=== PATIENT | male | born 1960 | race Caucasian/White ===

== ENCOUNTER 2021-10-18 14:41 | Inpatient (IN) | payer MEDICARE, MEDICAID, SELFPAY ==
[2021-10-18] VITALS (9 sets, daily range): BP systolic 125–140; BP diastolic 90–94; PULSE 65–74; RESP 16–18; TEMP 36.4–37.2; O2SAT 93–99; BMI 29.2; BMI 28.8
--- NOTE | 2021-10-18 15:02 | EKG12_ITS ---
Test Reason : CP Blood Pressure : / mmHG Vent. Rate : 077 BPM Atrial Rate : 077 BPM P-R Int : 124 ms QRS Dur : 156 ms QT Int : 506 ms P-R-T Axes : 046 256 111 degrees QTc Int : 572 ms AV dual-paced rhythm with frequent Premature ventricular complexes Biventricular pacemaker detected Abnormal ECG Confirmed by ANASTACIO VALIENTE, DOMINIQUE ([id number]), market editor ERICK MUÑIZ ([id number]) on 10/20/2021 1:01:04 PM Referred By: MARIO ALBERTO Confirmed By:MAGDALENO CHAEVS MD
--- NOTE | 2021-10-18 15:04 | EX.ED.DYSGE1 ---
HPI History of Present Illness Chief Complaint: ETOH Intox Informant: patient Narrative Narrative: Patient presents requesting detox from alcohol. He reports drinking beer for the last 30 years or so. He typically would drink 6 or 724 ounce cans daily. He states his last drink was 2 days ago. He is never been through a formal detox program. He has gone through withdrawals at home in the past. He denies any history of seizure. He also complains of chest pain that started approximate hour prior to arrival. He has a history of 2 prior MIs and has 11 cardiac stents. He does have a defibrillator and states this is his third defibrillator. His heart doctor is in [place]. He states he was seen in the ER at [facility] yesterday secondary to chest pain. He was discharged around midnight with a negative work-up. Pain recurred about an hour ago. Patient states his last heart cath was in July of this year that showed only mild narrowing. [facility] Medical History CAD (coronary artery disease) Myocardial infarction Pacemaker Allergy/AdvReac Type Severity Reaction Status Date / Time azithromycin Allergy Hives Verified 10/18/21 14:45 codeine Allergy Hives Verified 10/18/21 14:45 Surgical History History of heart artery stent Social History (Updated 10/18/21 @ 15:[address] Kristy Castro MD) Smoking Status: Unknown if ever smoked alcohol intake: current alcohol intake frequency: 3 or more drinks per day Alcohol type: beer ROS ROS ED Constitutional Constitutional ED: Denies chills or fever(s) Eyes Eyes: Denies change in vision ENT ENT ED: Denies sore throat Cardiovascular Cardiovascular: Reports chest pain Respiratory/Chest Respiratory/Chest: Denies cough or dyspnea Gastrointestinal Gastrointestinal: Denies abdominal pain, nausea or vomiting Genitourinary Genitourinary ED: Denies dysuria Musculoskeletal Musculoskeletal: Denies back pain or neck pain Integumentary Denies rash Neurologic Neurologic: Denies headache(s) or weakness Allergic/Immunologic Allergic/Immunologic ED: Denies urticaria EXAM Physical Exam Const Vital Signs: 10/18/21 14:42 Temperature 97.9 F Temperature Source Temporal Pulse Rate 74 Respiratory Rate 18 Blood Pressure 140/94 H Blood Pressure Mean 109 Pulse Ox 99 Positive well nourished and well developed General Appearance ED: well developed HEENT Reports moist mucous membranes Eyes PERRL and EOMs intact bilaterally Neck supple Chest Wall inspection of chest normal and palpation of chest normal Resp normal respiratory effort and clear to auscultation bilaterally Cardio regular rate and regular rhythm GI normal to inspection, nondistended, normoactive bowel sounds and non-tender Palpation: soft Extremity normal to inspection Neuro oriented x3 Neuro Narrative: Tremor noted to the bilateral upper extremities Sensorium / Orientation: alert Psych Mood & Affect: anxious Skin no rashes or lesions noted MDM MDM MDM Narrative Medical decision making narrative: Patient placed on secured entrance monitor. EKG, chest x-ray, lab work obtained. Patient given 1 mg of IV Ativan. Lab Data Attestation: I reviewed the patient's lab results. Labs: Laboratory Results - last 24 hr 10/18/21 10/18/21 10/18/21 15:15 15:15 15:15 WBC 6.7 RBC 5.71 Hgb 18.2 H* Hct 51.2 MCV 89.7 MCH 31.9 MCHC 35.5 RDW Std Deviation 39.6 RDW Coeff of [place] 11.9 Plt Count 164 MPV 9.5 Immature Gran % (Auto) 0.300 Neut % (Auto) 51.9 Lymph % (Auto) 37.8 [place] % (Auto) 8.9 Eos % (Auto) 0.7 Baso % (Auto) 0.4 Absolute Neuts (auto) 3.5 Absolute Lymphs (auto) 2.55 Nucleated RBC % 0 Diff Path Review November foll Sodium 137 Potassium 3.7 Chloride 108 H Carbon Dioxide 21.0 Anion Gap 8 BUN 11 Creatinine 0.87 Estim Creat Clear Calc 91.42 Est GFR (MDRD) Af Amer 115 Est GFR (MDRD) Non-Af 95 BUN/Creatinine Ratio 12.6 Glucose 92 Calcium 9.5 Total Bilirubin 1.40 H AST 55 H ALT 81 H Alkaline Phosphatase 86 Troponin I High Sens 29 Total Protein 7.9 Albumin 4.0 Globulin 3.9 Albumin/Globulin Ratio 1.0 Ethyl Alcohol 9.0 Radiography Chest X-Ray - ED: 1 View, Read by ED Physician and Chronic Changes Diagnostic Testing: Clinical Impression(s) from Imaging Studies Chest X-Ray 10/18/21 15:40 IMPRESSION: No acute abnormality is present. Electronically Signed: Sebastian Frazier MD at 15:53 EDT , EKG Initial EKG: Attestation: I personally reviewed and interpreted this EKG as follows: Comments: AV paced rhythm with ST changes noted in V2 V3. Attempts are being made to obtain old EKG. Treatment and Re-Evaluation Narrative: On repeat evaluation patient resting more comfortably. Lab work largely unremarkable with normal troponin. I will speak with hospitalist regarding admission for EtOH detox. Discharge Plan Triage Chief Complaint: ETOH Intox ED Provider: Kristy Castro Dx/Rx/DC Orders Clinical Impression: Desire for detoxification, Alcoholism, Chest pain Primary Care Provider: Care Physician,No Primary Referrals: Care Physician,No Primary [Primary Care Provider] - Disposition Disposition: Acute Care Hospital [facility]
--- NOTE | 2021-10-18 15:05 | NURSING ---
NO OLD EKGS
[2021-10-18 15:24] LABS: Absolute Lymphocyte Count 2.55 X10^3/uL (0.83-4.51); Absolute Neutrophil Count 3.5 X10^3/uL (2.0-7.7); Basophil# 0.03 X10^3/uL; Basophil% 0.4 % (0-1); Eosinophil# 0.05 X10^3/uL; Eosinophils% 0.7 % (0-5); Hematocrit 51.2 % (40-54); Hemoglobin 18.2 g/dL (13.0-16.5); Lymphocyte # 2.55 X10^3/ul (0.83-4.51); Lymphocyte % 37.8 % (19-41); Mean Corp Hgb Conc 35.5 g/dL (32-36); Mean Corpuscular Hgb 31.9 pg (27.0-32.0); Mean Corpuscular Volume 89.7 fL (80-94); Mean Platelet Vol. 9.5 fl (6.2-12.0); Monocyte% 8.9 % (0-10); NRBC Flagged by Analyzer 0 % (0-5); Neutrophil # 3.49 X10^3/uL (2.7-7.7); Neutrophil % 51.9 % (47-70); Platelet Count 164 K/mm3 (150-450); RBC Distribution Width CV 11.9 % (11.6-14.6); RBC Distribution Width SD 39.6 fl (35.1-43.9); Red Blood Count 5.71 M/mm3 (4.6-6.2); White Blood Count 6.7 K/mm3 (4.4-11.0)
[2021-10-18] MEDS: LORazepam 2 MG/ML Syringe 1 MG IV (15:36)
--- NOTE | 2021-10-18 15:40 | RAD_ITS ---
STUDY: X-RAY CHEST REASON FOR EXAM: Male, 61 years old. Cp TECHNIQUE: Single AP portable view of the chest. COMPARISON: None. FINDINGS: EKG electrodes are seen. The lungs are clear and expanded. There is no demonstrated pleural abnormality. Normal size heart. A left-sided ICD is seen. Normal mediastinum and sajan. Normal visualized pulmonary arteries. Normal visualized aortic arch and descending thoracic aorta. There are diffuse degenerative changes of the visualized thoracic spine. Normal visualized ribs, clavicles, and shoulders. There is no demonstrated abnormality of the visualized soft tissue structures of the upper abdomen. RAD/Chest 1 View (Portable) IMPRESSION: No acute abnormality is present. Electronically Signed: Sebastian Frazier MD at 15:53 EDT ,
[2021-10-18 15:44] LABS: AST(SGOT) 55 U/L (15-37); Alanine Aminotransfer ALT/SGPT 81 U/L (16-61); Alkaline Phosphatase 86 U/L (45-117); Anion Gap 8 (5-15); BUN 11 mg/dL (7-18); BUN/Creat Ratio 12.6 RATIO (10-20); Calcium,Total 9.5 mg/dL (8.5-10.1); Chloride 108 mmol/L (98-107); Creatinine, Serum 0.87 mg/dL (0.70-1.30); EST Glomerular Filtration Rate 95 mL/min (>60); Est Glom Filt Rate - Afr Amer 115 mL/min (>60); Estimated Creatinine Clearance 91.42 ml/min; Globulin 3.9 g/dL (2.2-4.2); Glucose 92 mg/dL (74-106); Potassium 3.7 mmol/L (3.5-5.1); Protein, Total 7.9 g/dL (6.4-8.2); Sodium Level 137 mmol/L (136-145); Troponin-I HS 29 pg/mL (3.0-78.0)
--- NOTE | 2021-10-18 16:56 | CM.ED ---
Social Work Met with patient in room. Introduced self and licensed master social worker role. Patient agreeable to speak with this licensed master social worker. Patient confirms to be seeking medical management of withdrawal symptoms. Patient reports substance of choice as alcohol. Patient states to have limited support in the community but a friend does know that patient is at the hospital. Patient verbally agreeing to [facility] contract. Telephone call to treatment navigatorBecca. Becca updated on patient admission. Becca to see patient tomorrow. PLAN: Admit to [facility]. Dot EDWARDS, CLAUDE
--- NOTE | 2021-10-18 16:59 | PCM.HP.STD ---
HPI - General General Date of Admission: 10/18/21 HPI Narrative EUFEMIA TORRE, is a 61 M who presents to the hospital requesting detox from alcohol. He drinks anywhere from 6-7, 24 ounce beers. He says that his last drink was 2 days ago and he has been trying to get himself off the alcohol over the last 2 weeks but is not been successful. He has been having significant feelings of anxiety for the last several weeks. He has never gone through detox before but he has gone through withdrawal. Of note he does have an extensive cardiac history with a history of A. fib status post ablation as well as, he states, 11 stents all done at [place]. He does have a defibrillator in place and is on amiodarone as well as Eliquis. He has been endorsing some chest pain and states that he had a cardiac cath done by his headlight assembler in July 2021 that showed very minimal disease and he presented to [facility] last night for chest pain and their work-up was negative, they recommended him coming here because of his cardiac history and the inpatient detox that we provide. He is continuing to have the same chest pain and his troponin here was 29. We did obtain an old EKG and there are some ST changes in V2 and V3, but this is likely dependent on whether or not the EKG was captured when he was either being a right ventricularly or left ventricularly paced. [facility] History (Updated 10/18/21 @ 16:[address] Kristy Castro MD) CAD (coronary artery disease) Myocardial infarction Pacemaker Home Medications amiodarone 200 mg PO DAILY 10/18/21 [History Last Taken Unknown] apixaban [Eliquis] 5 mg PO BID 10/18/21 [History Last Taken Unknown] atorvastatin 80 mg PO DAILY 10/18/21 [History Last Taken Unknown] clopidogrel [Plavix] 75 mg PO DAILY 10/18/21 [History Last Taken Unknown] folic acid 1 mg PO DAILY 10/18/21 [History Last Taken Unknown] isosorbide mononitrate 30 mg PO DAILY 10/18/21 [History Last Taken Unknown] lorazepam 0.5 mg PO TID PRN 10/18/21 [History Last Taken Unknown] metoprolol succinate 12.5 mg PO DAILY 10/18/21 [History Last Taken Unknown] pantoprazole 40 mg PO DAILY 10/18/21 [History Last Taken Unknown] ranolazine 1,000 mg PO BID 10/18/21 [History Last Taken Unknown] topiramate 75 mg PO BID 10/18/21 [History Last Taken Unknown] trazodone 50 mg PO QHS 10/18/21 [History Last Taken Unknown] Allergy/AdvReac Type Severity Reaction Status Date / Time azithromycin Allergy Hives Verified 10/18/21 14:45 codeine Allergy Hives Verified 10/18/21 14:45 Family History (Updated 10/18/21 @ 17:[address] Clemente Leon MD) Other CAD (coronary artery disease) Diabetes Hypertension Surgical History (Updated 10/18/21 @ 17:[address] Clemente Leon MD) History of heart artery stent Status post cholecystectomy Status post implantation of automatic cardioverter/defibrillator (AICD) Social History (Updated 10/18/21 @ 15:[address] Kristy Castro MD) Smoking Status: Unknown if ever smoked alcohol intake: current alcohol intake frequency: 3 or more drinks per day Alcohol type: beer ROS Constitutional Constitutional: Denies chills, fatigue, fever(s) or malaise Eyes Eyes: Denies blurry vision ENT HEENT: Denies headache(s) or nasal discharge Cardiovascular Cardiovascular: Reports chest pain; Denies dyspnea on exertion or syncope Respiratory/Chest Respiratory/Chest: Denies cough, shortness of breath at rest or shortness of breath with exertion Gastrointestinal Gastrointestinal: Denies constipation, diarrhea, nausea or vomiting Genitourinary Genitourinary: Denies dysuria Neurologic Neurologic: Denies focal weakness, numbness or tremor(s) Psychiatric Psychiatric: Reports anxiety; Denies depression Vital Signs Vital Signs Vital Signs: 10/18/21 14:42 10/18/21 16:27 Temperature 97.9 F 99.0 F Temperature Source Temporal Temporal Pulse Rate 74 70 Respiratory Rate 18 17 Blood Pressure 140/94 H 127/91 H Blood Pressure Mean 109 103 Pulse Ox 99 93 Oxygen Delivery Method Room Air Weight Weight: 198 lb 6.656 oz Body Mass Index (BMI) 29.2 Physical Exam Const alert, oriented x3 and no apparent distress General Appearance: cooperative HEENT normocephalic Mouth: dry mucous membranes Eyes PERRL, EOMs intact bilaterally and conjunctivae normal Neck supple and no JVD Resp normal respiratory effort, no retractions, no use of accessory muscles and clear to auscultation bilaterally Auscultation: Negative for crackles, rales, rhonchi or wheezes Cardio regular rate, regular rhythm, S1 normal heart sound, S2 normal heart sound and no murmurs GI soft to palpation, non-tender and non-distended; Negative for hepatosplenomegaly Extremity no clubbing, cyanosis or edema Skin no rashes or lesions noted Neuro no focal motor deficits and no sensory deficits noted Psych Mood & Affect: anxious Results Lab / Micro Data Result Diagrams: 10/18/21 15:15 10/18/21 15:15 Labs: Laboratory Results - last 24 hr 10/18/21 15:15: WBC 6.7, RBC 5.71, Hgb 18.2 H*, Hct 51.2, MCV 89.7, MCH 31.9, MCHC 35.5, RDW Std Deviation 39.6, RDW Coeff of [place] 11.9, Plt Count 164, MPV 9.5, Immature Gran % (Auto) 0.300, Neut % (Auto) 51.9, Lymph % (Auto) 37.8, [place] % (Auto) 8.9, Eos % (Auto) 0.7, Baso % (Auto) 0.4, Absolute Neuts (auto) 3.5, Absolute Lymphs (auto) 2.55, Nucleated RBC % 0, Diff Path Review November10/18/21 15:15: Sodium 137, Potassium 3.7, Chloride 108 H, Carbon Dioxide 21.0, Anion Gap 8, BUN 11, Creatinine 0.87, Estim Creat Clear Calc 91.42, Est GFR (MDRD) Af Amer 115, Est GFR (MDRD) Non-Af 95, BUN/Creatinine Ratio 12.6, Glucose 92, Calcium 9.5, Total Bilirubin 1.40 H, AST 55 H, ALT 81 H, Alkaline Phosphatase 86, Troponin I High Sens 29, Total Protein 7.9, Albumin 4.0, Globulin 3.9, Albumin/Globulin Ratio 1.0 10/18/21 15:15: Ethyl Alcohol 9.0 Radiology Impression Chest X-Ray 10/18/21 15:40 IMPRESSION: No acute abnormality is present. Electronically Signed: Sebastian Frazier MD at 15:53 EDT , Assessment & Plan Assessment/Plan (1) Alcoholism: (2) Desire for detoxification: PLAN: 1. Acute alcohol withdrawal requesting detox/anxiety ?Last drink was 2 days ago but he has been try to take himself off of alcohol for the last 2 weeks unsuccessfully. That she has been having significant anxiety over the last 2 weeks ?Continue with alcohol withdrawal protocol, has to be on Ativan because of the interaction between Eliquis, amiodarone, and phenobarbital. ?We will need to follow-up with 180 as an outpatient ?She does appear a little bit dehydrated with a hemoglobin of 18.2, will provide him him with 2 L of fluid ?She is on Ativan as needed as an outpatient will continue with the Ativan taper while here ?Continue with Topamax 2. CAD status post 11 stents/HTN/HLD/A. fib status post ablation with AICD placement ?Initial troponin was 29, he had a heart cath back in July ?EKG changes on today's EKG are consistent with variations based on whether he is being right ventricularly paced or left ventricularly paced ?We will repeat troponin and if normal will not pursue any aggressive intervention ?Continue with all of his home cage amiodarone, Eliquis Lipitor, Plavix, isosorbide mononitrate, metoprolol, ranolazine ?She has been having the chest pain for 48 hours and work-up at an outside hospital yesterday was negative as well 3. GERD ?Stable ?Continue with PPI DVT: Eliquis Charges/Coding Visit Charges Inpatient E&M: 74710 Init Hosp L3
[2021-10-18] MEDS: 0.9% Normal Saline 1,000 ML 100 ML IV (18:19)
[2021-10-18] MEDS: 0.9% Saline Lock 10 ML Syringe IV (18:19)
[2021-10-18] MEDS: LORazepam 1 MG Tablet 2 MG PO ×2 (18:19→21:38)
[2021-10-18 18:53] LABS: Troponin-I HS 27 pg/mL (3.0-78.0)
[2021-10-18] MEDS: traZODone 50 MG Tablet PO (21:36)
[2021-10-18] MEDS: APIXABAN 5 MG TABLET PO (21:37)
[2021-10-18] MEDS: Atorvastatin Calcium 80 MG Tablet PO (21:37)
[2021-10-18] MEDS: Ranolazine 500 MG Tablet 1000 MG PO (21:37)
[2021-10-18] MEDS: Topiramate 25 MG Tablet 75 MG PO (21:39)
[2021-10-18 23:29] LABS: Amphetamine Urine VISTA NEGATIVE (<1000 ng/mL); Barbiturate Urine VISTA NEGATIVE (< 200 ng/mL); Benzodiazepine Urine VISTA POSITIVE (< 200 ng/mL); Cocaine Urine VISTA NEGATIVE (< 300 ng/mL); Ecstacy Urine VISTA NEGATIVE (< 500 ng/mL); Methadone Urine VISTA NEGATIVE (< 300 ng/mL); PCP Urine VISTA NEGATIVE (< 25 ng/mL); THC Urine VISTA NEGATIVE (< 50 ng/mL); Vista UDS pH Range 8
[2021-10-19] VITALS (13 sets, daily range): BP systolic 104–128; BP diastolic 63–82; PULSE 69–71; RESP 16–18; TEMP 36.2–36.9; O2SAT 95–96
[2021-10-19] MEDS: LORazepam 1 MG Tablet 2 MG PO ×2 (01:35→05:49)
[2021-10-19] MEDS: 0.9% Normal Saline 1,000 ML 100 ML IV (03:49)
[2021-10-19] MEDS: Metoprolol(XL)Succ 25 MG Tablet 12.5 MG PO (09:21)
[2021-10-19] MEDS: Amiodarone 200 MG Tablet PO (09:22)
[2021-10-19] MEDS: Topiramate 25 MG Tablet 75 MG PO ×2 (09:22→20:40)
[2021-10-19] MEDS: Thiamine Hydrochloride 100 MG Tablet PO (09:22)
[2021-10-19] MEDS: Isosorbide Mononitrate 30 MG Tablet PO (09:22)
[2021-10-19] MEDS: Pantoprazole Sodium 40 MG Tablet PO (09:22)
[2021-10-19] MEDS: Phenobarbital 32.4 MG Tablet 64.8 MG PO ×5 (09:22→23:28)
[2021-10-19] MEDS: Clopidogrel Bisulfate 75 MG Tablet PO (09:22)
[2021-10-19] MEDS: Folic Acid 1 MG Tablet PO (09:23)
[2021-10-19 09:59] LABS: Anion Gap 4 (5-15); BUN 11 mg/dL (7-18); BUN/Creat Ratio 12.9 RATIO (10-20); Calcium,Total 8.3 mg/dL (8.5-10.1); Chloride 112 mmol/L (98-107); Creatinine, Serum 0.85 mg/dL (0.70-1.30); EST Glomerular Filtration Rate 98 mL/min (>60); Est Glom Filt Rate - Afr Amer 118 mL/min (>60); Estimated Creatinine Clearance 93.57 ml/min; Glucose 124 mg/dL (74-106); Magnesium 2.1 mg/dL (1.6-2.6); Phosphorus 3.9 mg/dL (2.5-4.9); Potassium 3.5 mmol/L (3.5-5.1); Sodium Level 138 mmol/L (136-145)
--- NOTE | 2021-10-19 10:36 | PN.HOSP_ITS ---
Subjective Subjective No issues overnight. The patient denies any nausea vomiting or diarrhea. He does complain of some mild tremor. No chest pain at this time however he does state that he had some on presentation. He evidently had a heart catheterization done in July in which they found no intervene able disease and medical treatment was continued. Did discuss with him the need for discontinuation of his Ranexa and Eliquis while he was in the hospital and he was agreeable to this. He is to inform us if he develops any further chest pain. He did have a 7 beat run of VT overnight that was asymptomatic. Objective Data Objective Data Vital Signs: Vital Signs Temp Pulse Resp BP Pulse Ox 97.9 F 70 18 104/65 96 10/19/21 09:13 10/19/21 09:21 10/19/21 09:13 10/19/21 09:21 10/19/21 09:13 Oxygen Delivery Method Room Air Weight: 88.6 kg Body Mass Index (BMI) 28.8 Intake & Output: Intake and Output for Last 24 Hours 10/17/21 10/18/21 10/19/21 23:59 23:59 23:59 Intake Total 270 / 270 1070 / 1070 Balance 270 / 270 1070 / 1070 Lab / Micro Data Result Diagrams: 10/18/21 15:15 10/19/21 09:25 Labs: Laboratory Results - last 24 hr 10/18/21 15:15: WBC 6.7, RBC 5.71, Hgb 18.2 H*, Hct 51.2, MCV 89.7, MCH 31.9, MCHC 35.5, RDW Std Deviation 39.6, RDW Coeff of [place] 11.9, Plt Count 164, MPV 9.5, Immature Gran % (Auto) 0.300, Neut % (Auto) 51.9, Lymph % (Auto) 37.8, [place] % (Auto) 8.9, Eos % (Auto) 0.7, Baso % (Auto) 0.4, Absolute Neuts (auto) 3.5, Absolute Lymphs (auto) 2.55, Nucleated RBC % 0, Diff Path Review November10/18/21 15:15: Sodium 137, Potassium 3.7, Chloride 108 H, Carbon Dioxide 21.0, Anion Gap 8, BUN 11, Creatinine 0.87, Estim Creat Clear Calc 91.42, Est GFR (MDRD) Af Amer 115, Est GFR (MDRD) Non-Af 95, BUN/Creatinine Ratio 12.6, Glucose 92, Calcium 9.5, Total Bilirubin 1.40 H, AST 55 H, ALT 81 H, Alkaline Phosphatase 86, Troponin I High Sens 29, Total Protein 7.9, Albumin 4.0, Globulin 3.9, Albumin/Globulin Ratio 1.0 10/18/21 15:15: Ethyl Alcohol 9.0 10/18/21 18:14: Troponin I High Sens 27 10/18/21 23:02: Urine Opiates Screen NEGATIVE, Urine Methadone Screen NEGATIVE, Ur Barbiturates Screen NEGATIVE, Ur Phencyclidine Scrn NEGATIVE, Ur Amphetamines Screen NEGATIVE, MDMA (Ecstasy) Screen NEGATIVE, U Benzodiazepines Scrn POSITIVE H, Urine Cocaine Screen NEGATIVE, U Cannabinoids Screen NEGATIVE, Ur Drug Screen Comment 10/19/21 09:25: Sodium 138, Potassium 3.5, Chloride 112 H, Carbon Dioxide 22.0, Anion Gap 4 L, BUN 11, Creatinine 0.85, Estim Creat Clear Calc 93.57, Est GFR (MDRD) Af Amer 118, Est GFR (MDRD) Non-Af 98, BUN/Creatinine Ratio 12.9, Glucose 124 H, Calcium 8.3 L, Phosphorus 3.9, Magnesium 2.1 Radiography Diagnostic Testing: Radiology Impression Chest X-Ray 10/18/21 15:40 IMPRESSION: No acute abnormality is present. Electronically Signed: Sebastian Frazier MD at 15:53 EDT , Physical Exam Const alert and oriented x3 Constitutional Narrative: Upper middle-aged white male who appears older than st ated age lying in bed with manufacturing engineering director at the bedside, appears somewhat anxious and mildly tremulous however nontoxic Exam Limitations: no limitations Nutritional Appearance: overweight HEENT head/scalp atraumatic and moist oral mucous membranes HEENT Narrative: Mallampati is 2, uppers are edentulous, no thrush present Head and Scalp: normocephalic Resp normal respiratory effort, no retractions, no use of accessory muscles and clear to auscultation bilaterally Auscultation: Negative for crackles, rales, rhonchi or wheezes Cardio regular rate, regular rhythm, S1 normal heart sound, S2 normal heart sound, no murmurs, no rub, no gallops, no clicks and no JVD GI normal to inspection, nondistended, normoactive bowel sounds, soft to palpation, non-tender and non-distended Extremity no clubbing, cyanosis or edema Peripheral Pulses: Yes pulses 2+ throughout Neuro oriented x3, CN's II-XII intact bilaterally, moves all extremities and no focal motor deficits Neuro Narrative: Mild fine tremor noted on exam, mentation is clear Sensorium / Orientation: awake and alert Speech: speech normal Psych Mood & Affect: anxious Assessment & Plan Assessment/Plan (1) Erythrocytosis: (2) Transaminitis: (3) Chest pain: (4) Desire for detoxification: (5) Alcohol withdrawal: PLAN: Acute alcohol withdrawal -Patient drinks 6 to 7 24 ounce beers daily alcohol percent unknown -Was trying to wean himself off alcohol at home but doing so unsuccessfully -Initially it started on Ativan taper secondary to drug interaction between Eliquis and phenobarbital -Start phenobarbital and discontinue Ativan taper -Stop Eliquis and start therapeutic Lovenox -We will transition back to Eliquis at discharge -Continue thiamine and folate -Continue supportive medications for withdrawal symptoms -Await 180 consultation for plan at discharge Chest pain -Resolved -Patient reports he had an extensive work-up done in July at which time a cardiac catheterization was done -No intervene able disease noted at that time -EKG shows no signs of acute ischemia -Troponin and delta troponin are both normal with no change -Holding home Ranexa secondary to phenobarbital Ranexa interaction -Patient was told this in instructed to let us know if he started to have any chest pain VT -Patient with approximately 7-8 beat run of monomorphic ventricular tachycardia -Patient has known cardiac history -No echo performed here ever -We will try to obtain most recent ejection fraction -Continue home metoprolol -Check BMP, mag, and phosphorus levels -Goal magnesium greater than 2, potassium goal greater than 4 and will replace if less than these values Transaminitis -Pattern is not what I would expect to see from alcohol hepatitis with the ALT being greater than the AST -Repeat in a.m. and if still elevated will pursue work-up further Erythrocytosis -May be related to some dehydration -Was performed on admission -Repeat CBC in a.m. CAD/HTN/HPL -Patient has reported history of 11 stents -Recent cardiac catheterization done in July -Continue home atorvastatin, Plavix, isosorbide mononitrate, metoprolol -Hold Ranexa secondary to phenobarbital action History of atrial fibrillation status post ablation -Continue amiodarone -Holding Eliquis secondary to phenobarb and reaction in utilizing therapeutic dose Lovenox until discharge -Monitor on telemetry with VT run GERD -Continue Protonix DVT prophylaxis -Full dose Lovenox Charges/Coding Visit Charges Inpatient E&M: 46455 Subs Hosp L2
[2021-10-19 11:58] LABS: Pathologist Review Reviewed
[2021-10-19] MEDS: Potassium Chloride Oral Tablet 20 MEQ 60 MEQ PO (13:04)
--- NOTE | 2021-10-19 15:16 | ADDICTION ---
This writer editor met with PT to conduct ASAM, MSE, AUDIT DUDIT assessments and to plan for d/c. PT A+Ox4 and participated actively. All assessments completed and placed in PT's chart. PT plans to f/u with [facility] for residential treatment services. Pt did not indicate a need for transportation post d/c from [facility].
[2021-10-19] MEDS: Enoxaparin 100 MG/ML Syringe 90 MG SC (17:03)
--- NOTE | 2021-10-19 17:58 | NURSING ---
Reviewed charting with Lidia Balderrama RN
[2021-10-19] MEDS: Atorvastatin Calcium 80 MG Tablet PO (20:40)
[2021-10-19] MEDS: traZODone 50 MG Tablet PO (20:40)
[2021-10-20] VITALS (12 sets, daily range): BP systolic 101–132; BP diastolic 70–78; PULSE 66–71; RESP 18–19; TEMP 35.8–36.7; O2SAT 95–97
[2021-10-20] MEDS: Phenobarbital 32.4 MG Tablet 64.8 MG PO ×6 (03:38→23:50)
[2021-10-20] MEDS: Enoxaparin 100 MG/ML Syringe 90 MG SC ×2 (05:25→17:28)
[2021-10-20 05:55] LABS: Absolute Lymphocyte Count 2.93 X10^3/uL (0.83-4.51); Absolute Neutrophil Count 2.5 X10^3/uL (2.0-7.7); Basophil# 0.02 X10^3/uL; Basophil% 0.3 % (0-1); Eosinophil# 0.09 X10^3/uL; Eosinophils% 1.5 % (0-5); Hematocrit 47.7 % (40-54); Hemoglobin 16.3 g/dL (13.0-16.5); Lymphocyte # 2.93 X10^3/ul (0.83-4.51); Lymphocyte % 48.8 % (19-41); Mean Corp Hgb Conc 34.2 g/dL (32-36); Mean Corpuscular Volume 93.7 fL (80-94); Mean Platelet Vol. 10.5 fl (6.2-12.0); Monocyte# 0.47 X10^3/uL; Monocyte% 7.8 % (0-10); NRBC Flagged by Analyzer 0 % (0-5); Neutrophil # 2.48 X10^3/uL (2.7-7.7); Neutrophil % 41.4 % (47-70); Platelet Count 130 K/mm3 (150-450); RBC Distribution Width CV 11.7 % (11.6-14.6); RBC Distribution Width SD 40.7 fl (35.1-43.9); Red Blood Count 5.09 M/mm3 (4.6-6.2)
[2021-10-20 06:26] LABS: AST(SGOT) 33 U/L (15-37); Alanine Aminotransfer ALT/SGPT 61 U/L (16-61); Albumin, Serum 3.4 g/dL (3.2-5.0); Alkaline Phosphatase 86 U/L (45-117); Anion Gap 4 (5-15); BUN 12 mg/dL (7-18); BUN/Creat Ratio 12.1 RATIO (10-20); Calcium,Total 8.7 mg/dL (8.5-10.1); Chloride 111 mmol/L (98-107); Creatinine, Serum 0.99 mg/dL (0.70-1.30); EST Glomerular Filtration Rate 82 mL/min (>60); Est Glom Filt Rate - Afr Amer 99 mL/min (>60); Estimated Creatinine Clearance 80.34 ml/min; Globulin 3.5 g/dL (2.2-4.2); Glucose 80 mg/dL (74-106); Potassium 3.9 mmol/L (3.5-5.1); Protein, Total 6.9 g/dL (6.4-8.2); Sodium Level 136 mmol/L (136-145)
[2021-10-20] MEDS: Amiodarone 200 MG Tablet PO (08:26)
[2021-10-20] MEDS: Folic Acid 1 MG Tablet PO (08:26)
[2021-10-20] MEDS: Pantoprazole Sodium 40 MG Tablet PO (08:26)
[2021-10-20] MEDS: Thiamine Hydrochloride 100 MG Tablet PO (08:26)
[2021-10-20] MEDS: Metoprolol(XL)Succ 25 MG Tablet 12.5 MG PO (08:26)
[2021-10-20] MEDS: Isosorbide Mononitrate 30 MG Tablet PO (08:26)
[2021-10-20] MEDS: Clopidogrel Bisulfate 75 MG Tablet PO (08:26)
[2021-10-20] MEDS: Topiramate 25 MG Tablet 75 MG PO ×2 (08:27→22:41)
--- NOTE | 2021-10-20 09:29 | PN.HOSP_ITS ---
Subjective Subjective Patient states he is feeling okay with regards to his alcohol withdrawal. No significant tremor or anxious feeling internally, no diarrhea, no nausea or vomiting. Patient has some intermittent chest pain which is his baseline. Does express that the plan is for [facility] for inpatient rehab at discharge. Objective Data Objective Data Vital Signs: Vital Signs Temp Pulse Resp BP Pulse Ox 97.4 F L 66 18 106/74 95 10/20/21 08:00 10/20/21 08:26 10/20/21 08:00 10/20/21 08:00 10/20/21 08:00 Oxygen Delivery Method Room Air Weight: 88.6 kg Body Mass Index (BMI) 28.8 Intake & Output: Intake and Output for Last 24 Hours 10/18/21 10/19/21 10/20/21 23:59 23:59 23:59 Intake Total 270 / 270 2910 / 2910 222 / 222 Output Total 1350 / 1350 300 / 300 Balance 270 / 270 1560 / 1560 -78 / -78 Lab / Micro Data Result Diagrams: 10/20/21 05:04 10/20/21 05:04 Labs: Laboratory Results - last 24 hr 10/18/21 15:15: Diff Path Review Reviewed 10/19/21 09:25: Sodium 138, Potassium 3.5, Chloride 112 H, Carbon Dioxide 22.0, Anion Gap 4 L, BUN 11, Creatinine 0.85, Estim Creat Clear Calc 93.57, Est GFR (MDRD) Af Amer 118, Est GFR (MDRD) Non-Af 98, BUN/Creatinine Ratio 12.9, Glucose 124 H, Calcium 8.3 L, Phosphorus 3.9, Magnesium 2.1 10/20/21 05:04: WBC 6.0, RBC 5.09, Hgb 16.3, Hct 47.7, MCV 93.7, MCH 32.0, MCHC 34.2, RDW Std Deviation 40.7, RDW Coeff of [place] 11.7, Plt Count 130 L, MPV 10.5, Immature Gran % (Auto) 0.200, Neut % (Auto) 41.4 L, Lymph % (Auto) 48.8 H, Hutchinson % (Auto) 7.8, Eos % (Auto) 1.5, Baso % (Auto) 0.3, Absolute Neuts (auto) 2.5, Absolute Lymphs (auto) 2.93, Nucleated RBC % 0 10/20/21 05:04: Sodium 136, Potassium 3.9, Chloride 111 H, Carbon Dioxide 21.0, Anion Gap 4 L, BUN 12, Creatinine 0.99, Estim Creat Clear Calc 80.34, Est GFR (MDRD) Af Amer 99, Est GFR (MDRD) Non-Af 82, BUN/Creatinine Ratio 12.1, Glucose 80, Calcium 8.7, Total Bilirubin 0.90, AST 33, ALT 61, Alkaline Phosphatase 86, Total Protein 6.9, Albumin 3.4, Globulin 3.5, Albumin/Globulin Ratio 1.0 Physical Exam Const alert, oriented x3 and no apparent distress Constitutional Narrative: Upper middle-aged white male who appears older than stated age lying in bed, watching television, appears comfortable and nontoxic, no tremor, patient appears less anxious than yesterday General Appearance: cooperative Exam Limitations: no limitations Nutritional Appearance: overweight HEENT normocephalic, head/scalp atraumatic and moist oral mucous membranes HEENT Narrative: Mallampati 3, no thrush Head and Scalp: normocephalic Resp normal respiratory effort, no retractions, no use of accessory muscles and clear to auscultation bilaterally Auscultation: Negative for crackles, rales, rhonchi or wheezes Cardio regular rate, regular rhythm, S1 normal heart sound, S2 normal heart sound, no murmurs, no rub, no gallops, no clicks and no JVD GI normal to inspection, nondistended, normoactive bowel sounds, soft to palpation, non-tender and non-distended; Negative for hepatosplenomegaly Extremity no clubbing, cyanosis or edema Peripheral Pulses: Yes pulses 2+ throughout Neuro oriented x3, moves all extremities and no focal motor deficits Neuro Narrative: Mild fine tremor noted on exam, mentation is clear Sensorium / Orientation: awake and alert Speech: speech normal Psych affect normal Assessment & Plan Assessment/Plan (1) Erythrocytosis: (2) Transaminitis: (3) Chest pain: (4) Desire for detoxification: (5) Alcohol withdrawal: PLAN: Acute alcohol withdrawal -Patient drinks 6 to 7 24 ounce beers daily alcohol percent unknown -Was trying to wean himself off alcohol at home but doing so unsuccessfully -Initially it started on Ativan taper secondary to drug interaction between Eliquis and phenobarbital -Continue phenobarbital taper -Continue thiamine and folate -Continue supportive medications for withdrawal symptoms -Patient was seen by 180 yesterday and plan at discharge is for [facility] recovery services as an inpatient -Probable discharge in the next 24 hours if patient continues to do well Chest pain -Resolved -Patient reports he had an extensive work-up done in July at which time a cardiac catheterization was done -No intervenable disease noted at that time -I was unable to pull these records out of clinisync -EKG shows no signs of acute ischemia -Troponin and delta troponin are both normal with no change -Holding home Ranexa secondary to phenobarbital Ranexa interaction -Patient was told this in instructed to let us know if he started to have any chest pain VT -Patient with approximately 7-8 beat run of monomorphic ventricular tachycardia early on the a.m. of 10/19/2021 -No further events -Patient has known cardiac history -Unable to find any records in clinisync from previous interventions/hospitalizations -Continue home metoprolol -Potassium yesterday was 3.5 and 40 mEq given -Potassium today 3.9 we will give another 40 mEq today magnesium and phosphorus with within normal limits and greater than 2 for the magnesium Thrombocytopenia -Mild -Platelets 130,000 -May be related to medications Transaminitis -Resolved Erythrocytosis -Resolved CAD/HTN/HPL -Patient has reported history of 11 stents -Recent cardiac catheterization done in July -Continue home atorvastatin, Plavix, isosorbide mononitrate, metoprolol -Hold Ranexa secondary to phenobarbital action History of atrial fibrillation status post ablation -Continue amiodarone -Holding Eliquis secondary to phenobarb and reaction in utilizing therapeutic dose Lovenox until discharge -Monitor on telemetry with VT run GERD -Continue Protonix DVT prophylaxis -Full dose Lovenox Charges/Coding Visit Charges Inpatient E&M: 90488 Subs Hosp L2
[2021-10-20] MEDS: Potassium Chloride Oral Tablet 20 MEQ 40 MEQ PO (10:27)
[2021-10-20] MEDS: OLANZapine 5 MG/TAB TAB.RAPDIS PO (22:42)
[2021-10-20] MEDS: Atorvastatin Calcium 80 MG Tablet PO (22:42)
[2021-10-20] MEDS: traZODone 50 MG Tablet PO (22:42)
[2021-10-21 04:04] VITALS: BP 114/75; PULSE 70; RESP 17; TEMP 37.1; O2SAT 96
[2021-10-21] MEDS: Phenobarbital 32.4 MG Tablet 64.8 MG PO ×4 (04:08→17:02)
[2021-10-21] MEDS: Enoxaparin 100 MG/ML Syringe 90 MG SC (05:49)
[2021-10-21 07:12] VITALS: PULSE 70
[2021-10-21 08:38] VITALS: BP 113/76; PULSE 69; RESP 14; TEMP 36.7; O2SAT 96
[2021-10-21] MEDS: Folic Acid 1 MG Tablet PO (08:42)
[2021-10-21] MEDS: Thiamine Hydrochloride 100 MG Tablet PO (08:42)
[2021-10-21] MEDS: Isosorbide Mononitrate 30 MG Tablet PO (08:43)
[2021-10-21 08:44] VITALS: BP 113/76; PULSE 69
[2021-10-21] MEDS: Amiodarone 200 MG Tablet PO (08:44)
[2021-10-21] MEDS: Metoprolol(XL)Succ 25 MG Tablet 12.5 MG PO (08:44)
[2021-10-21] MEDS: Pantoprazole Sodium 40 MG Tablet PO (08:44)
[2021-10-21] MEDS: Clopidogrel Bisulfate 75 MG Tablet PO (08:44)
[2021-10-21] MEDS: Topiramate 25 MG Tablet 75 MG PO (08:46)
--- NOTE | 2021-10-21 09:49 | PCM.DC.SUM ---
Providers Date of Admission: 10/18/21 Date of Discharge: 10/21/21 Primary Care Physician: No Primary Care Phys Reason For Visit: ETOH DETOX Diagnosis Discharge Diagnosis (1) Erythrocytosis: Status: Acute Code(s): D75.1 - Secondary polycythemia (2) Transaminitis: Status: Acute Code(s): R74.01 - Elevation of levels of liver transaminase levels (3) Chest pain: Status: Acute Code(s): R07.9 - Chest pain, unspecified (4) Desire for detoxification: Status: Acute (5) Alcohol withdrawal: Status: Acute Code(s): F10.239 - Alcohol dependence with withdrawal, unspecified Medications at Discharge Home Medications Eliquis 5 mg PO BID 10/18/21 amiodarone 200 mg PO DAILY 10/18/21 atorvastatin 80 mg PO DAILY 10/18/21 clopidogrel [Plavix] 75 mg PO DAILY 10/18/21 folic acid 1 mg PO DAILY 10/18/21 isosorbide mononitrate 30 mg PO DAILY 10/18/21 lorazepam 0.5 mg PO TID PRN 10/18/21 metoprolol succinate 12.5 mg PO DAILY 10/18/21 pantoprazole 40 mg PO DAILY 10/18/21 ranolazine 1,000 mg PO BID 10/18/21 topiramate 75 mg PO BID 10/18/21 trazodone 50 mg PO QHS 10/18/21 Hospital Course Operations None Procedures None Summary of Care Provided Minutes Spent on Discharge: 36 Hospital Course: Mr. Bruce is a 61-year-old white male who was admitted to the hospital on 10/18/2021 via the emergency department requesting alcohol detox. On admission he reported he was drinking anywhere from 6-7 24 ounce beers a day. His last drink was 2 days prior to presentation he was trying to wean himself off alcohol over the last 2 weeks prior to presentation but he had not been all that successful. He reported having significant feelings of anxiety over the last several weeks. He indicated he had never gone through detox before but has been through withdrawal. He did complain of some chest pain on admission but indicated he has a chronic history of chest pain and an extensive cardiac history. He follows with a local combination truck driver in [place] and has 11 stents as well as history of atrial fibrillation and is status post ablation and he has a defibrillator. On presentation he is on amiodarone and Eliquis at baseline. He reported he had a cardiac catheterization done in July 2021 that showed minimal disease and presented to [place] the night prior to presentation for chest pain and a work-up there was negative. They recommended him coming to our hospital for detox because of his cardiac history. He was admitted to PCU so we could monitor him from a cardiac standpoint. He was initially placed on Ativan taper however we did convert of phenobarbital and discontinued his Eliquis replacing it with Lovenox while he was on his phenobarb taper and holding his Ranexa. He had a 7 beat run of monomorphic ventricular tachycardia on the a.m. just after admission. At that time he was asymptomatic. We obtained electrolytes and found that his potassium was 3.5 and therefore replaced his potassium. Magnesium and phosphorus levels were normal. He had no further events and as noted above was already on amiodarone. He had no significant chest pain during his hospitalization and his symptoms with regards to his detox improve dramatically. He was evaluated by 180 and his plan at discharge is to be admitted to an inpatient program at [facility] on 10/23/2021. On 10/21/2021 was found that he was stable for discharge and he wanted to go home and present to [facility] on Saturday morning. He was discharged home in stable condition. We did make a referral to a primary care physician and it is documented he does not have a PCP and he was instructed to follow-up with them in 4 weeks. Discharge diagnoses: Acute alcohol withdrawal-resolved Chest pain-resolved VT-stable Mild thrombocytopenia Transaminitis-resolved Erythrocytosis-resolved CAD Hypertension Hyperlipidemia History of atrial fibrillation status post ablation GERD Physical Exam Const alert, oriented x3 and no apparent distress Constitutional Narrative: Upper middle-aged white male who appears older than stated age sitting up on the edge of the bed, appears comfortable and nontoxic, no tremor, no overt signs of active withdrawal at this time General Appearance: cooperative, comfortable, well kempt and well developed Orientation / Consciousness: awake Exam Limitations: no limitations Nutritional Appearance: overweight HEENT normocephalic, head/scalp atraumatic and moist oral mucous membranes HEENT Narrative: Mildly hard of hearing, dentures in place, no thrush, Mallampati 2-3 Eyes PERRL, EOMs intact bilaterally and conjunctivae normal Neck no lymphadenopathy, supple and no JVD Neck Narrative: Trachea midline, no thyroid enlargement Resp normal respiratory effort, no retractions, no use of accessory muscles and clear to auscultation bilaterally Auscultation: Negative for crackles, rales, rhonchi or wheezes Cardio regular rate, regular rhythm, S1 normal heart sound, S2 normal heart sound, no murmurs, no rub, no gallops, no clicks and no JVD GI normal to inspection, nondistended, normoactive bowel sounds, soft to palpation, non-tender and non-distended; Negative for hepatosplenomegaly Extremity normal to inspection and no clubbing, cyanosis or edema Extremity Narrative: 2+ pedal pulses bilaterally Skin no rashes or lesions noted Neuro oriented x3, CN's II-XII intact bilaterally, moves all extremities and no focal motor deficits Neuro Narrative: No further tremor noted on exam Sensorium / Orientation: awake and alert Speech: speech normal Motor Exam: strength 5/5 throughout Psych affect normal Weight / BMI Weight Weight: 88.6 kg Body Mass Index (BMI) 28.8 ABG / Lab / Microbiology Data Result Diagrams: 10/20/21 05:04 10/20/21 05:04 D/C Instructions Discharge Diet: Low fat / Low cholesterol Discharge Activity: Return to Normal Activity Meaningful Use Info Meaningful Use Diagnoses (Choose all that apply): None applicable Discharge Plan Admission Admit Date/Time: 10/18/21 16:41 Primary Reason for Your Visit: EtOH detox Attending Provider: Opal Moreno Primary Care Provider: Care Physician,No Primary Instructions Additional Instructions / Restrictions: 1. Report to [facility] on Saturday AM for admission for Inpt Rehab Discharge Orders/Prescriptions Prescriptions: Continued atorvastatin 80 mg Tablet 80 mg PO DAILY RF: 0 trazodone 50 mg Tablet 50 mg PO QHS RF: 0 amiodarone 200 mg Tablet 200 mg PO DAILY RF: 0 isosorbide mononitrate 30 mg Tablet Extended Release 24 Hr 30 mg PO DAILY RF: 0 topiramate 25 mg Tablet 75 mg PO BID RF: 0 clopidogrel [Plavix] 75 mg Tablet 75 mg PO DAILY RF: 0 lorazepam 0.5 mg Tablet 0.5 mg PO TID PRN (Reason: Anxiety) RF: 0 pantoprazole 40 mg Tablet,Delayed Release (Dr/Ec) 40 mg PO DAILY RF: 0 folic acid 1 mg Tablet 1 mg PO DAILY RF: 0 metoprolol succinate 25 mg Tablet Extended Release 24 Hr 12.5 mg PO DAILY RF: 0 ranolazine 1,000 mg Tablet Extended Release 12 Hr 1,000 mg PO BID RF: 0 Eliquis 5 mg Tablet 5 mg PO BID RF: 0 Referrals / Follow Up: Mary Watts MD [STAFF PHYSICIAN] - Within 1 Month (to establish with a primary care physician) Care Physician,No Primary [Primary Care Provider] - Disposition Disposition (needs filled in before D/C Order can be placed): Home, Self Care Charges/Coding Visit Charges Inpatient E&M: 42278 Disch Hosp
[2021-10-21 11:06] VITALS: PULSE 76
--- NOTE | 2021-10-21 15:30 | CM.ED ---
Addendum entered by Rhonda Urbina 10/21/21 21:40: Patient continued to state this isn't my fault and said I should have come here 1 day earlier. SW asked patient what he thinks he should do and patient said I will hitchhike home. Patient was asked about money and he played his money account and it stated he had $53 in the account and drug abuse social worker asked about patient's credit card and he said that is what I had. Patient was advised he could go to hotel and stay overnight. Patient said how much is that costing? and drug abuse social worker advised patient he needs to get on line and check out prices. SW advised patient that he told [facility] staff that he had no issues with ride or transportation home and he stated I never said that. SW advised that this worker knows the addiction therapist and she is very knowledge and thorough in her assessments. Patient said well I thought Robert would take me home. Patient then stated well, I called [facility] first and the lady from [facility] got me in touch with Robert. 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 I don't have anybody. When KIEL confronted patient about he has options to call Robert back sobia and that he refused and then said he is not calling him about tomorrow and then said he is not calling his friends and then he is not calling the human factors engineer at [facility]. KIEL advised patient that he has options but is making the choice not to pursue them. KIEL advised that it appears that patient feels comfortable with staying in the hospital. Patient continually voiced victiml matthew statements. KIEL update Audrey Arias that Jesus Manuel Lopez had contacted [employer] and they agreed to cook pickled meat patient. KIEL confirmed that hospital is fast in paying bills and to provide the email contact of Perez Arias. KIEL called Robert Maria. He said that patient had called him and he had something scheduled that day but the schedule cleared up so he brought patient to the ED. Robert said that if he had known that patient was being discharged yesterday he could have come today. Robert confirmed he had plans tonight and when he told that to patient the patient had stated don't worry about it.. the hospital will cab me home. SW explained that the average time of detox is 3 days and Robert said well I knew it could be longer as he was detoxing from alcohol and had heart issues. Plan: Home by taxi Rhonda RIDDLE Addendum entered by Rhonda Urbina 10/21/21 17:35: KIEL met with patient again as per cab company in [place] no transport is available. Patient said that Robert was not able to pick him up today. Patient said that Robert and his have plans. SW asked about tomorrow if they could pick patient up and patient said I don't want to call them on [facility]. SW asked patient to call the Log Buyer with the [employer] and patient said that he is not calling the human factors engineer. SW noted that earlier patient had said that people were calling him when he looked at his phone and this senior technical writer said that maybe those people could come and provide transportation. Patient said they only want to come and drink .. they are not going to come this far to get me. SW asked patient to call Robert Ronmahin again to see if he can pick him up tonight and patient said he won't as he already called him and he has plans. Patient said that he has caresource insurance so drug abuse social worker asked to see the insurance card and patient got his insurance card which was medicaid. SW can not call for medicaid transport on weekend. Patient said I wanted to come but I wouldn't have come if I knew this. Patient said this isn't my fault. Rhonda RIDDLE Original Note: KIEL Note SW was advised that patient was being discharged and had no transportation home. SW called [facility] in [facility]. SW was advised that patient was transported from [facility] and now is ready for discharge. Worker said that she works for [employer] and the [place] staff will not be available till Saturday. SW reviewed patient's insurance. Medicaid [employer] and Medicare. SW met with patient. He said he is a loner and has no family or friends support (however, later he said that he had lots of people that were trying to call him). Patient then said that he was from [place] but adopted and lived in [place] but his family . Patient said that he uses [facility] to transport him to the medical appointments in [facility]. He reports he doesn't have enough money for cab home. KIEL called Helene at [facility] Treatment Navigator about transport home for patient. Helene called [facility] advised that due to safety concerns they can not provide transport home for patient. Reeler Operator for PCU called [employer]. As it is a Holiday Weekend they are short staffed and can't go out of town. [facility] and explained the situation and how patient has NO ride home. KIEL spoke to Marcie who was going to contact her supervisor belt and link assembly. Marcie called back and said that her supervisor belt and link assembly said we are not able to provide [facility]. KIEL noted that they provided it when patient came to the ED for detox. KIEL met with patient in his room and he had a business card for [employer], which is different than [facility], and Robert Maria who brought him to the ED's phone number was on the card. Rhonda RIDDLE
[2021-10-21 15:33] VITALS: BP 98/60; PULSE 70; RESP 14; TEMP 36.6; O2SAT 97
--- NOTE | 2021-10-21 17:32 | NURSING ---
this nurse called [facility] [phone] they stated that they can bill [facility] with and email and it would be 90 plus tax. He would be able to take the patient in about 1 hour. package pick up time . verified with social media campaign manager Wade Arias
== END 2021-10-21 18:56 | disposition home or self-care (01) | DRG 897 ==
LOC: ED 16:36 → PCU 17:38
PROVIDERS: Admitting Provider Family Medicine; Emergency Provider Emergency Medicine; Visit Provider Internal Medicine
DX: F10.239 Alcohol dependence with withdrawal, unspecified (principal); I47.2 Ventricular tachycardia; D69.6 Thrombocytopenia, unspecified; I48.91 Unspecified atrial fibrillation; E78.5 Hyperlipidemia, unspecified; E86.0 Dehydration; F41.9 Anxiety disorder, unspecified; K21.9 Gastro-esophageal reflux disease without esophagitis; I25.10 Atherosclerotic heart disease of native coronary artery without angina pectoris; I10 Essential (primary) hypertension; I25.2 Old myocardial infarction; R74.01 Elevation of levels of liver transaminase levels; Z79.02 Long term (current) use of antithrombotics/antiplatelets; Z90.5 Acquired absence of kidney; Y90.0 Blood alcohol level of less than 20 mg/100 ml
CPT/HCPCS: 36415; 71045; 80048; 80053; 80307; 82077; 83735; 84100; 84484; 85025; 93005; 99283; J7030; A4216